=== PATIENT | female | born 1945 | race Asian ===

== ENCOUNTER 2021-04-22 07:37 | Outpatient (REF) | payer MEDICAID, SELFPAY ==
--- NOTE | ~2021-04-22 | CT_ITS ---
EXAMINATION: CT ABDOMEN AND PELVIS WITHOUT CONTRAST CLINICAL INFORMATION: Unintentional weight loss COMPARISON: None TECHNIQUE: Multidetector volumetric imaging was performed from the superior aspect of the liver through the pubic symphysis. Sagittal and coronal reformatted images were obtained on the technologist's workstation. This CT examination was performed using dose optimization techniques as appropriate, variously including the following: *Automated exposure control *Adjustment of mA and/or kV according to patient size (this includes techniques or standardized protocols for targeted exams where dose is matched to indication/reason for exam; i.e. extremities or head) *Use of iterative reconstruction technique DLP: 261 mGy-cm FINDINGS: LIVER, GALLBLADDER, AND BILIARY TREE: The liver is normal in size, shape, and attenuation. No focal hepatic lesion or biliary ductal dilatation is present. The gallbladder has been removed. PANCREAS: Unremarkable. SPLEEN: The spleen is lobulated in shape. The spleen is normal in size. ADRENAL GLANDS: Unremarkable. KIDNEYS AND URETERS: The kidneys are normal in size, shape, and attenuation. No hydronephrosis, hydroureter, or calculi seen. No perinephric stranding. BLADDER: There is mild diffuse bladder wall thickening, particularly the anterior bladder wall. GASTROINTESTINAL TRACT: The small and large bowel are unremarkable. The appendix is unremarkable. The stomach is not optimally distended. There is question of mild wall thickening of the stomach. ABDOMINAL WALL: There is a small umbilical hernia containing fat. LYMPH NODES: Normal. VASCULAR: There is evidence of atherosclerotic disease. No aneurysm is seen. PELVIC VISCERA: There is a 1 cm calcification in the left pelvis probably in the left ovary/adnexa.. The uterus and adnexa are otherwise unremarkable. There is a small amount of fluid in the pelvis. OSSEOUS STRUCTURES: There are degenerative changes of the spine and mild curvature to the left. There is a lipoma of the right iliopsoas muscle. CT/CT abdomen pelvis wo con IMPRESSION: Mild diffuse bladder wall thickening. Question mild gastric wall thickening. Small left pelvic calcification probably in the left ovary/adnexa and small amount of fluid in the pelvis.
--- NOTE | ~2021-04-22 | CT_ITS ---
EXAMINATION: CT CHEST WITHOUT CONTRAST CLINICAL INFORMATION: Bilateral pleural effusions and mediastinal lymphadenopathy COMPARISON: None TECHNIQUE: Multidetector volumetric CT imaging of the chest was done. Axial MIP volume rendering provided. Sagittal and coronal reformatted images were obtained. This CT examination was performed using dose optimization techniques as appropriate, variously including the following: *Automated exposure control *Adjustment of mA and/or kV according to patient size (this includes techniques or standardized protocols for targeted exams where dose is matched to indication/reason for exam; i.e. extremities or head) *Use of iterative reconstruction technique DLP: 58 mGy-cm FINDINGS: LUNGS: There is a 3 mm left upper lobe nodule axial image 219 series 5. There is a 3 mm left lower lobe nodule axial image 277 series 5. There is a 2 mm right lower lobe nodule axial image 307 series 5. There is a 3 mm right lower lobe nodule axial 5. There is a 4 mm left left lower lobe nodule axial image 336 series 5. There are clustered 4 mm peripheral right lower lobe nodule axial image 340 10/26/1948 series 5. There are slightly increased interstitial markings seen in the peripheral right lower lobe. No evidence of emphysema or bronchiectasis. No endobronchial or endotracheal lesion. MEDIASTINUM: The heart is enlarged. In particular, the left atrium is enlarged. There is mild coronary artery calcification. The thoracic aorta caliber. There is no pericardial effusion. There are small mediastinal lymph nodes. No enlarged lymph nodes are seen. PLEURA: There is no pleural effusion. No pleural mass or thickening. AXILLA: No lymphadenopathy. OSSEOUS STRUCTURES: There are degenerative changes of the spine. CT/CT chest wo con IMPRESSION: Small pulmonary nodules or micronodules. Small mediastinal lymph nodes. No enlarged lymph nodes seen. No pleural effusion. Enlarged heart, particularly the left atrium is enlarged.
--- NOTE | 2021-04-25 11:58 | MHC.HEMONCMA ---
Urgent referral to GI sent via message task to GI windows desktop engineer. Joann from GI states they will call the patient to get her in urgently.
== END 2021-04-22 07:38 | disposition home or self-care (01) ==
LOC: HO.CT 07:37
PROVIDERS: Visit Provider Internal Medicine Medical Oncology
DX: R63.4 Abnormal weight loss (principal); J90 Pleural effusion, not elsewhere classified
CPT/HCPCS: 71250; 74176

== ENCOUNTER → 2021-05-06 09:11 | Outpatient (BNVA) | payer MEDICAID, SELFPAY | PROVIDERS: PCP Physician Assistant Medical; Referring Provider Physician Assistant Medical; Visit Provider Nurse Practitioner Family | DX: Z01.818 Encounter for other preprocedural examination (principal); Z01.810 Encounter for preprocedural cardiovascular examination; K59.01 Slow transit constipation; R63.4 Abnormal weight loss; R14.0 Abdominal distension (gaseous); I05.0 Rheumatic mitral stenosis; I27.20 Pulmonary hypertension, unspecified; I48.20 Chronic atrial fibrillation, unspecified; I11.0 Hypertensive heart disease with heart failure; I50.9 Heart failure, unspecified; I25.10 Atherosclerotic heart disease of native coronary artery without angina pectoris | CPT/HCPCS: 93005; 99202 ==

== ENCOUNTER → 2021-05-08 10:27 | Outpatient (REF) | payer MEDICAID, SELFPAY ==
--- NOTE | 2021-05-08 10:30 | CA_ITS ---
Acquisition Time: 2021-05-08 11:02:48 Total Exercise Time: 00:02:00 Test Indications: Z01.810 - Encounter for preproc Medications: Protocol: LEXISCAN Max HR: 103 BPM 72% of Pred: 143 BPM Max BP: 124/064 mmHG Max Work Load: 1.0 METS Pharmacological stress test with Lexiscan injection, while sitting and kicking her legs, without anginal symptoms, with report of dizziness, with intermittent LBBB, with normotensive response to injection, with nondiagnostic EKG for ischemia. In recovery she was treated with Aminophylline 75mg IVP with improvement in symptom. Nuclear images pending. Test reviewed with Dr Varela. Referred By: Chely Patel Overread By: CHELY PATEL
== END ==
LOC: HO.CARD 10:27
PROVIDERS: Visit Provider Internal Medicine Cardiovascular Disease
DX: Z01.810 Encounter for preprocedural cardiovascular examination (principal); I50.9 Heart failure, unspecified; I48.20 Chronic atrial fibrillation, unspecified; I25.10 Atherosclerotic heart disease of native coronary artery without angina pectoris; I05.0 Rheumatic mitral stenosis
CPT/HCPCS: 78452; 93017; A9500; J0280; J2785

== ENCOUNTER → 2021-05-08 | Outpatient (REF) | payer MEDICAID, SELFPAY ==
--- NOTE | ~2021-05-08 | NM_ITS ---
Myocardial perfusion study Indication: Preoperative cardiovascular risk stratification Technique: The patient was brought in for a Lexiscan perfusion study on 05/08/2021. Patient performed low-level exercise and was injected 0.4 mg of Lexiscan intravenously. Within a minute of injection, 25 mCi of sestamibi was given intravenously. Images were obtained using the SPECT gamma camera interlaced with the gating device. Images were obtained in supine position. Resting perfusion study was performed on 05/09/2021. Patient was administered 25 mCi of sestamibi intravenously at rest. Images were then obtained in supine position. Images obtained with and without CT attenuation. Total DLP 77 mGy-cm. Images were processed with the software and compared side to side in short axis, horizontal long axis and vertical long axis views. Findings: The stress perfusion study showed nonattenuated images show very minimal thinning of the apical inferolateral wall of the LV myocardium. Remainder of the LV myocardium is normally perfused. Attenuation corrected images show thinning of the apical inferolateral wall of the LV myocardium with minimally reduced uptake as well as mildly reduced uptake in the distal anterior wall of the LV myocardium. The gated study shows normal LV systolic function with calculated LVEF of greater than 70 %. LV cavity is normal in size. The gated study shows normal systolic wall thickening and contraction of segments. Resting study shows nonattenuated images show normal uptake of radiotracer in all segments of LV myocardium. Impression corrected images show uptake in the inferolateral wall of the LV myocardium with uptake in the apical inferior wall of the LV myocardium. Gating at rest reveals normal systolic wall motion with ejection fraction at 70%. The findings are consistent with likely normal myocardial perfusion. NM/NM ya perf SPECT rest & str Impression: 1. Myocardial perfusion imaging study shows likely normal myocardial perfusion 2. Gated LVEF is 70% 3. Transient ischemic dilatation not present EKG is nondiagnostic for ischemia
== END ==
LOC: HO.CARD
PROVIDERS: Visit Provider Internal Medicine Cardiovascular Disease
DX: Z01.818 Encounter for other preprocedural examination (principal); I27.0 Primary pulmonary hypertension
CPT/HCPCS: 78452; A9500

== ENCOUNTER → 2021-05-09 07:20 | Outpatient (REF) | payer MEDICAID, SELFPAY ==
--- NOTE | 2021-05-09 07:23 | CA_ITS ---
Transthoracic Echocardiogram Patient (Last, First, Middle): Katlin Tracy, Gender: Female Date of : 1945 Age: 75 Procedure Date: 05/09/2021 Procedure Type: Transthoracic Echocardiogram Location: OP Height: 160. cm Weight: 50. kg BSA: 1.50 m2 Heart Rate: bpm BP: 126 / 74 mmHg Geology Scientist: SAMMI Referring MD: Chely Patel NP-[employer] Engine Operator: Michel Varela MD Symptoms: I05.0 - Rheumatic mitral stenosis Study Quality: Good ECG Rhythm: Atrial Fibrillation Conclusions: - 1. Normal LV systolic function with LVEF of 60 65% 2. Severe rheumatic mitral stenosis 3. At least moderately dilated left atrium 4. Normal RV systolic pressure 5. No pericardial effusion Findings Left Ventricle Normal left ventricular size, thickness, and systolic function. The visually estimated ejection fraction is between 60-65%. Diastolic function is indeterminate on the basis of available data. Right Ventricle Normal right ventricular cavity size and systolic function. Atria The left atrium is moderately dilated. There is no evidence of interatrial shunt. The right atrium is mildly dilated. Aortic Valve There is mild thickening of the aortic valve. There is no aortic valve stenosis. There is no aortic valve regurgitation. Mitral Valve The mitral valve appears rheumatic. There is severe anterior and posterior mitral leaflet thickening. There is trace mitral valve regurgitation. There is severe mitral valve stenosis. Due to atrial fibrillation a mean gradient of variable from 8 mm to 11 mm of mercury. Calculated valve area by planimetry 0.826 cm2 consistent with severe mitral stenosis. Strange score of 8. Pulmonic Valve The pulmonic valve is likely normal. There is trace to mild pulmonic valve regurgitation. Tricuspid Valve Normal tricuspid valve structure. There is mild tricuspid valve regurgitation. The right ventricular systolic pressure is normal. The right ventricular systolic pressure is 31 mmHg. Normal right atrial pressure. There is no evidence of pulmonary hypertension. Great Vessels All visible segments of the aorta are normal in size. The pulmonary artery was not well visualized. Venous The inferior vena cava is normal in size and collapses greater than 50% with inspiration. Pericardium/Pleural There is no evidence of pericardial effusion. Prior Study Comparison No prior study available for comparison. Measurements M-Mode Liner Measurements Normals - Women/Men IVSd: 1.38 0.6-0.9/0.6-1.0 cm LVIDd: 3.96 3.9-5.3/4.2-5.9 cm LVIDd Index: 2.64 1.9-3.2 cm/m2 LVIDs: 2.30 2.0-3.8 cm LVPWd: 0.85 0.6-0.9/0.6-1.0 cm LV Mass: 181.48 67-162/88-224g LV Mass Index: 120.99 43-95/49-115 g/m2 M-Mode Volumes LV EDV: 68.30 LV ESV: 18.10 2D Linear Measurements IVSd: 1.18 0.6-0.9/0.6-1.0 cm LVIDd: 3.98 3.9-5.3/4.2-5.9 cm LVIDd Index: 2.65 2.4-3.2/2.2-3.1 cm/m2 LVIDs: 3.18 2.0-3.6 cm LVPWd: 1.03 0.7-1.1 cm Ao Root: 2.30 2.1-3.5 cm LA Diam: 4.50 2.7-3.8/3.0-4.0 cm LAIDs Index: 3.00 1.5-2.3 cm/m2 LV Mass: 181.10 67-162/88-224 g LV Mass Index: 120.73 43-95/49-115 g/m2 LVOT Diam: 1.70 3.0+(-)1.3 cm 2D Systolic Function EF 4C: 65.30 >55% EF 2C: 36.40 >55% M-Mode Systolic Function FS: 41.90 27-47/25-43% Mitral Valve MV VTI: 0.52 MV Pk Andres: 1.82 MV Mn Andres: 1.29 MV Pk Grad: 13.00 MV Mn Grad: 7.00 MV Pk E: 1.78 MV Decel Time: 593.00 E'Lateral: 6.15 E'Medial: 4.84 E/E' Med: 36.80 E/E' Lat: 28.90 PHT: 174.00 MVA PHT: 1.26 MVA Continuity: 0.70 Decel Logan: 3.05 Aortic Valve AoV Pk Andres: 1.10 AoV Pk Grad: 5.00 LVOT LVOT Pk Andres: 0.79 LVOT Mn Andres: 0.51 LVOT VTI: 0.16 LVOT Pk Grad: 2.00 LVOT Mn Grad: 1.00 LVOT Diam: 1.70 LVOT Area: 2.27 Diastolic Function MV Pk E: 1.78 E'Medial: 4.84 E/E' Med: 36.80 E' Laterial: 6.15 E/E' Lat: 28.90 Tricuspid Valve TR Pk Andres: 2.64 TR Pk Grad: 28.00 RA Press: 3.00 RVSP: 31.00 Great Vessels Aorta Ao Root-2D: 2.30 2.0-3.7 cm Ao Asc: 3.00 2.1-3.4 cm Updated in Other Vendor System with Status of Final Michel Varela MD electronically signed on 05/10/2021 2:53:38 PM with status of Final
== END ==
LOC: HO.CARD 07:20
PROVIDERS: Visit Provider Internal Medicine Cardiovascular Disease
DX: Z01.810 Encounter for preprocedural cardiovascular examination (principal); I25.10 Atherosclerotic heart disease of native coronary artery without angina pectoris; I27.20 Pulmonary hypertension, unspecified; I05.0 Rheumatic mitral stenosis
CPT/HCPCS: 93306

== ENCOUNTER 2021-05-16 11:10 | Day surgery (SDC) | payer MEDICAID, SELFPAY ==
--- NOTE | 2021-05-15 13:32 | HO.ANESPROP2 ---
Documented by User: Lissette Nathan NP 05/15/21 13:54 HPI - Anesthesia Eval Consult details Narrative: 75yo F for Upper Endoscopy and Colonoscopy Cardiac cleared: Nuclear stress test completed 05/08/2021 shows likely normal myocardial perfusion imaging with EF greater than 70%.? Echocardiogram done 05/09/2021 shows EF 60-65%, severe rheumatic mitral stenosis, moderate left atrial dilatation, RVSP 31 mm of mercury, no pulmonary hypertension.? Discussed case with Dr. Varela.? Patient may proceed with upper and lower endoscopies, which are low risk procedures with intermediate cardiac risk.? Would avoid medications that cause vasodilation.? Can hold Eliquis 2 days prior to procedure and restart as soon as cleared by surgeon to do so.? Previously discussed stroke risk while off anticoagulation with her.? Will arrange for cardiology follow-up in the near future to discuss plan of care with mitral stenosis and anticoagulation use. [facility] Active Problems Active Problems: All Active Problems (Updated 05/12/21 @ 17:26 by Igor Rivera MD) CHF (congestive heart failure) (Acute) Coronary artery calcification seen on CAT scan (Acute) HTN (hypertension) (Acute) Pulmonary hypertension (Acute) Mitral stenosis (Acute) Chronic a-fib (Acute) Preop cardiovascular exam (Acute) Hypercalcemia (Acute) Weight loss (Acute) Past Medical History Medical History (Updated 05/12/21 @ 17:26 by Igor Rivera MD) CHF (congestive heart failure) Chronic a-fib COVID-19 vaccine series completed Dementia Edema History of cardioversion HTN (hypertension) Hypercalcemia Hypothyroid Rheumatic heart disease Unintentional weight loss Family History Family History Family/Other Ulcerative colitis Crohn disease Surgical History Surgical History History of cardioversion (~2017) No pertinent past surgical history Social History Social History Are you a primary healthcare translator to a significant other at home: No Do you presently have visiting nurse or other home services: No Alcohol intake: never Patient Tobacco Use Status: Never used Tobacco Advance Directives: No Advance Directives Information Provided: No Meds Allergies Allergy/AdvReac Type Severity Reaction Status Date / Time No Known Allergies Allergy Verified 05/06/21 15:44 Home Medications Medication Instructions Recorded Confirmed Last Taken Type alprazolam 0.25 mg tablet 0.5 mg PO BEDTIME 04/09/21 05/12/21 Unknown History apixaban 5 mg tablet (Eliquis) 5 mg PO BID 04/09/21 05/12/21 05/13/21 History aspirin 81 mg tablet,delayed 81 mg PO DAILY 04/09/21 05/12/21 05/13/21 History release donepezil 5 mg tablet 5 mg PO DAILY 04/09/21 05/12/21 Unknown History febuxostat 40 mg tablet 40 mg PO DAILY 04/09/21 05/12/21 Unknown History levothyroxine 75 mcg tablet 75 mcg PO DAILY 04/09/21 05/12/21 05/16/21 10:30 History memantine 10 mg tablet 10 mg PO BID 04/09/21 05/12/21 Unknown History cinacalcet 30 mg tablet 30 mg PO DAILY 05/06/21 05/12/21 Unknown History diltiazem HCl 90 mg tablet 90 mg PO BID tab 05/06/21 05/12/21 05/16/21 07:30 History torsemide 5 mg tablet 5 mg PO DAILY PRN 05/06/21 05/12/21 Unknown History Exam Exam Date and Time: May 15, 2021 1332 Pertinent Lab Results Pertinent Lab Results: Laboratory Tests 04/09/21 04/09/21 11:40 11:40 WBC 7.4 Hgb 14.0 Hct 41.8 Plt Count 154 L Sodium 128 L Potassium 4.5 Chloride 95 L Carbon Dioxide 25 BUN 49 H Creatinine 1.80 H Narrative Narrative: EKG 04/2021 Afib, q waves anterolateral leads, unchanged from prior, QTc 440ms, rate 56 Echo 04/2021 Conclusions: -? 1. Normal LV systolic function with LVEF of 60 65%? 2. Severe rheumatic mitral stenosis? 3. At least moderately dilated left atrium ? 4. Normal RV systolic pressure ? 5. No pericardial effusion ? NM ya perf SPECT rest & str 04/2021 Impression: ? 1.? Myocardial perfusion imaging study shows likely normal myocardial perfusion 2.? Gated LVEF is 70% 3. Transient ischemic dilatation not present ? EKG is nondiagnostic for ischemia Assessment and Plan Assessment Anesthesia Assessment: Chart Reviewed Documented by User: Debora Burrows MD 05/16/21 11:58 [facility] Past Medical History Medical History (Updated 05/12/21 @ 17:26 by Igor Rivera MD) CHF (congestive heart failure) Chronic a-fib COVID-19 vaccine series completed Dementia Edema History of cardioversion HTN (hypertension) Hypercalcemia Hypothyroid Rheumatic heart disease Unintentional weight loss Functional capacity: independent ambulation Patient : No Family History Family History Family/Other Ulcerative colitis Crohn disease Family history of problems with anesthesia: No Surgical History Surgical History History of cardioversion (~2017) No pertinent past surgical history History of Problems with Anesthesia: No Social History Social History Are you a primary healthcare translator to a significant other at home: No Do you presently have visiting nurse or other home services: No Alcohol intake: never Patient Tobacco Use Status: Never used Tobacco Advance Directives: No Advance Directives Information Provided: No Meds Allergies Allergy/AdvReac Type Severity Reaction Status Date / Time No Known Allergies Allergy Verified 05/06/21 15:44 Home Medications Medication Instructions Recorded Confirmed Last Taken Type alprazolam 0.25 mg tablet 0.5 mg PO BEDTIME 04/09/21 05/12/21 Unknown History apixaban 5 mg tablet (Eliquis) 5 mg PO BID 04/09/21 05/12/21 05/13/21 History aspirin 81 mg tablet,delayed 81 mg PO DAILY 04/09/21 05/12/21 05/13/21 History release donepezil 5 mg tablet 5 mg PO DAILY 04/09/21 05/12/21 Unknown History febuxostat 40 mg tablet 40 mg PO DAILY 04/09/21 05/12/21 Unknown History levothyroxine 75 mcg tablet 75 mcg PO DAILY 04/09/21 05/12/21 05/16/21 10:30 History memantine 10 mg tablet 10 mg PO BID 04/09/21 05/12/21 Unknown History cinacalcet 30 mg tablet 30 mg PO DAILY 05/06/21 05/12/21 Unknown History diltiazem HCl 90 mg tablet 90 mg PO BID tab 05/06/21 05/12/21 05/16/21 07:30 History torsemide 5 mg tablet 5 mg PO DAILY PRN 05/06/21 05/12/21 Unknown History Exam Airway Mallampati Class: II TM Dist: >3cm Neck ROM: Full Heart: irreg. Lungs: CTA Assessment and Plan Final Anesthetic Review Family History of Problems with Anesthesia: No History of Problems with Anesthesia: No ASA Class: II Final Preanesthetic Review: No Changes in Pt Med Stat Patient Risk: Intermediate Procedure Risk: Low Anesthetic Plan Anesthetic Plan: MAC: Disposition: Standard PACU
[2021-05-16 11:54] VITALS: BMI 19.5
[2021-05-16 12:00] VITALS: BP 153/78; PULSE 81; RESP 18; TEMP 36.6; O2SAT 99
[2021-05-16 12:07] LABS: Anion Gap 14 (12-20); Blood Urea Nitrogen 13 mg/dL (9-16); Calcium 9.4 mg/dL (8.4-10.2); Carbon Dioxide 24 mmol/L (22-29); Chloride 106 mmol/L (96-108); Creatinine Clr Calc Pharmacy 31.5; Estimated Glomerular Filt Rate 44; Glucose Fasting 86 mg/dL (60-99); Potassium 3.9 mmol/L (3.3-5.1); Sodium 140 mmol/L (135-145)
--- NOTE | 2021-05-16 12:42 | MHC.SHP ---
Pre-Procedural Eval Section A Date of Service: 05/16/21 The patient is an INPATIENT: No Changes since office visit: Yes Patient answered all questions; No Cold of Flu in the past 2 weeks, No New Medical Problems and No Changes in Medication The History & Physical has been completed within 30 days and I have reviewed it.: Yes Section B Chief Complaint: screening,wt loss Allergies: Allergies Allergy/AdvReac Type Severity Reaction Status Date / Time No Known Allergies Allergy Verified 05/06/21 15:44 Plan I have reviewed the history and physical and performed a pertinent physical examination on my patient. No changes have occurred unless specified.
--- NOTE | 2021-05-16 12:42 | PM.OP ---
Brief Operative Note Date of Service: 05/16/21 Pre-op diagnosis: Colon cancer screening, abnormal CT scan of the stomach, weight loss Post-op diagnosis: other (Gastritis, colon polyps, diverticulosis) Procedure: FLEXIBLE TRANSORAL UPPER GASTROINTESTINAL ENDOSCOPY WITH BIOPSIES COLONOSCOPY TILL CECUM WITH SNARE POLYPECTOMY UPPER ENDOSCOPY Consent: Indications for the procedure and potential complications of bleeding, perforation, reaction to medications and missed diagnosis were discussed with the patient and informed consent was obtained. Instrument: Olympus GIF H 190 mid size upper endoscope Monitoring: Vital signs and clinical assessment, continuous EKG monitoring, Pulse oximetry, Carbon Dioxide monitoring and blood pressure monitoring were done throughout the procedure. Procedure: The patient was placed in the left lateral decubitis position and pre-procedure medications were administered and a bite block was placed. The endoscope was inserted into the mouth and advanced under direct vision to the third part of duodenum. A careful inspection was made as the upper endoscope was withdrawn including a retroflexed examination of the proximal stomach; Findings and interventions are described below. Findings: Larynx: Normal Esophagus: GE junction at 36 cms. No esophagitis or Bowens's. Stomach: Mild gastric erythema. Biopsies were obtained. Grade 2 flap valve and decreased fundal folds on retroflexed examination of the cardia. Duodenum: Normal bulb and descending duodenum. Biopsies were obtained from 3rd part of the duodenum to check for celiac disease Intervention: Biopsies as noted above COLONOSCOPY PROCEDURE NOTE Consent: Indications for the procedure and potential complications of bleeding, perforation, reaction to medications and missed diagnosis were discussed with the patient and informed consent was obtained. Instrument: Olympus PCF H 190 L variable stiffness pediatric colonoscope Monitoring: Vital signs and clinical assessment, intermittent blood pressure monitoring, continuous EKG monitoring, Pulse oximetry and Carbon Dioxide monitoring were done throughout the procedure. Colon withdrawl time was 24 minutes. Procedure: The patient was placed in the left lateral decubitis position and pre-procedure medications were administered. After a digital rectal examination of the ano-rectum, the video colonoscope was inserted into the rectum and advanced through the colon to the cecum. The colonoscope was slowly withdrawn in a retrograde panoramic fashion and the colon mucosa was carefully examined including a retroflexed view of the rectum. Findings and interventions are described below. Procedure Difficulty: : Without difficulty Findings: Terminal Ileum: Distal 5 cms was examined and appeared normal Cecum: Normal Ascending Colon: Three 10 to 10 mm sessile polyps removed with a hot snare. Scattered diverticulosis throughout the colon Transverse Colon: Scattered diverticulosis throughout the colon Descending Colon: Scattered diverticulosis throughout the colon Sigmoid Colon: Moderate diverticulosis Rectum: Normal Ano-rectum: Perianal skin tags Colon preparation: Good after some irrigation. Impression and Post Procedure Diagnosis: Endoscopy Findings: STOMACH: Gastritis DUODENUM: Normal - biopsied to check for celiac sprue. Colonoscopy Findings: Three medium sized polyps removed Moderate diverticulosis seen in the entire colon Plan: Await pathology results Patient has an appointment on 05/27/21 in the [facility] with Hansa Miller FNP-BC . Repeat Colonoscopy interval based on path results - in 3 years if polyps are adenomatous and 10 years if polyps are hyperplastic. Above findings were reviewed with the patient and Gastritis, colon polyps and diverticulosis handouts were given in the discharge area Surgeon: Fercho Sutton MD Anesthesia: MAC (Natalie Montes CRNA) Was an Nanosystems Engineer used for this Procedure?: Yes Nanosystems Engineer: Vish Verdin Estimated blood loss (mL): 0 Pathology: other (A- SMALL BOWEL BXS R/O CELIAC B- GASTRIC ANTRUM BXS R/O H. PYLORI C- STOMACH BXS LESSER CURVATURE D- STOMACH BXS GREATER CURVATURE E- ASCENDING COLON POLYPS) Condition: stable Disposition: PACU
--- NOTE | 2021-05-16 12:43 | P.OP_ITS ---
Operative Note Operative Note Date of Service: 05/16/21 Narrative: Pre-op diagnosis:?Colon cancer screening, abnormal CT scan of the stomach, weight loss Post-op diagnosis:?other (Gastritis, colon polyps, diverticulosis) Procedure:? FLEXIBLE TRANSORAL UPPER GASTROINTESTINAL ENDOSCOPY WITH BIOPSIES COLONOSCOPY TILL CECUM WITH SNARE POLYPECTOMY UPPER ENDOSCOPY Consent:?Indications for the procedure and potential complications of bleeding, perforation, reaction to medications and missed diagnosis were discussed with the patient and informed consent was obtained. Instrument:?Olympus GIF H 190 mid size upper endoscope Monitoring: Vital signs and clinical assessment, continuous EKG monitoring, Pulse oximetry, Carbon Dioxide monitoring and blood pressure monitoring were done throughout the procedure. Procedure:?The patient was placed in the left lateral decubitis position and pre-procedure medications were administered and a bite block was placed. The endoscope was inserted into the mouth and advanced under direct vision to the third part of duodenum. A careful inspection was made as the upper endoscope was withdrawn including a retroflexed examination of the proximal stomach; Findings and interventions are described below. Findings: Larynx:? Normal Esophagus: GE junction at 36 cms.? No esophagitis or Bowens's. Stomach: Mild gastric erythema. Biopsies were obtained. Grade 2 flap valve and decreased fundal folds on retroflexed examination of the cardia. Duodenum:?Normal bulb and descending duodenum.? Biopsies were obtained from 3rd part of the duodenum to check for celiac disease Intervention: Biopsies as noted above COLONOSCOPY PROCEDURE NOTE Consent:?Indications for the procedure and potential complications of bleeding, perforation, reaction to medications and missed diagnosis were discussed with the patient and informed consent was obtained. Instrument:?Olympus PCF H 190 L variable stiffness pediatric colonoscope Monitoring:?Vital signs and clinical assessment, intermittent blood pressure monitoring, continuous EKG monitoring, Pulse oximetry and Carbon Dioxide monitoring were done throughout the procedure. Colon withdrawl time was 24 minutes. Procedure:?The patient was placed in the left lateral decubitis position and pre-procedure medications were administered. After a digital rectal examination of the ano-rectum, the video colonoscope was inserted into the rectum and advanced through the colon to the cecum. The colonoscope was slowly withdrawn in a retrograde panoramic fashion and the colon mucosa was carefully examined including a retroflexed view of the rectum. Findings and interventions are described below. Procedure Difficulty:?: Without difficulty Findings: Terminal Ileum:?Distal 5 cms was examined and appeared normal Cecum:? Normal Ascending Colon:? Three 10 to 10 mm sessile polyps removed with a hot snare. Scattered diverticulosis throughout the colon Transverse Colon: Scattered diverticulosis throughout the colon Descending Colon:? Scattered diverticulosis throughout the colon Sigmoid Colon:? Moderate diverticulosis Rectum:? Normal Ano-rectum:? Perianal skin tags Colon preparation:? Good after some irrigation. Impression and Post Procedure Diagnosis: Endoscopy Findings: STOMACH: Gastritis DUODENUM: Normal - biopsied to check for celiac sprue. Colonoscopy Findings: Three medium sized polyps removed Moderate diverticulosis seen in the entire colon Plan: Await pathology results Patient has an appointment on 05/27/21 in the [facility] with Hansa Miller FNP- BC . Repeat Colonoscopy interval based on path results - in 3 years if polyps are adenomatous and 10 years if polyps are hyperplastic. Above findings were reviewed with the patient and Gastritis, colon polyps and diverticulosis handouts were given in the discharge area Surgeon:?Fercho Sutton MD Anesthesia:?MAC (Natalie Montes CRNA) Was an Pmo Business Analyst used for this Procedure?:?Yes Pmo Business Analyst:?Vish Verdin Estimated blood loss (mL):?0 Pathology:?other (A- SMALL BOWEL BXS? R/O CELIAC? B- GASTRIC ANTRUM BXS? R/O H. PYLORI? C- STOMACH BXS? LESSER CURVATURE? D- STOMACH BXS? GREATER CURVATURE? E- ASCENDING COLON POLYPS) Condition:?stable Disposition:?PACU
[2021-05-16] MEDS: Lactated Ringers 1,000 ML 50 ML IVCONT (12:52)
[2021-05-16 13:58] VITALS: BP 104/53; PULSE 76; RESP 16; TEMP 36.1; O2SAT 100
[2021-05-16 14:13] VITALS: BP 134/76; PULSE 84; RESP 16; O2SAT 97
[2021-05-16 14:28] VITALS: BP 143/78; PULSE 76; RESP 16; TEMP 36.1; O2SAT 99
== END 2021-05-16 14:45 | disposition home or self-care (01) ==
PROVIDERS: Nurse Practitioner; Visit Provider Internal Medicine Gastroenterology
PROC: (CPT 45385; principal; 2021-05-16 12:20)
DX: Z12.11 Encounter for screening for malignant neoplasm of colon (principal); K57.30 Diverticulosis of large intestine without perforation or abscess without bleeding; K64.4 Residual hemorrhoidal skin tags; R63.4 Abnormal weight loss; K29.50 Unspecified chronic gastritis without bleeding; I27.20 Pulmonary hypertension, unspecified; I48.20 Chronic atrial fibrillation, unspecified; I11.0 Hypertensive heart disease with heart failure; I50.9 Heart failure, unspecified; I05.0 Rheumatic mitral stenosis; R82.994 Hypercalciuria; Z79.01 Long term (current) use of anticoagulants; Z79.899 Other long term (current) drug therapy
CPT/HCPCS: 45385; 45380; 36415; 80048; 88305; 88342; J3010

== ENCOUNTER 2021-05-16 11:36 | Outpatient (REF) | payer MEDICAID, SELFPAY | END 2021-05-16 11:37 | disposition home or self-care (01) | LOC: HO.LAB 11:36 | PROVIDERS: Visit Provider Internal Medicine Gastroenterology | DX: Z13.89 Encounter for screening for other disorder (principal) ==

== ENCOUNTER → 2021-05-21 10:42 | Outpatient (BNVA) | payer MEDICAID, SELFPAY | PROVIDERS: Visit Provider Internal Medicine Cardiovascular Disease | DX: I48.20 Chronic atrial fibrillation, unspecified (principal); I05.0 Rheumatic mitral stenosis | CPT/HCPCS: 99212 ==

== ENCOUNTER → 2021-05-27 09:46 | Outpatient (BNVA) | payer MEDICAID, SELFPAY | PROVIDERS: Visit Provider Nurse Practitioner Family | DX: D36.9 Benign neoplasm, unspecified site (principal); Z98.890 Other specified postprocedural states | CPT/HCPCS: 99212 ==

== ENCOUNTER 2021-05-28 13:06 | Day surgery (SDC) | payer MEDICAID, SELFPAY ==
--- NOTE | 2021-05-27 10:28 | P.CONAN_ITS ---
HPI - Anesthesia Eval Consult details Narrative: 75yo F for Transesophageal Echocardiogram Coumadin for afib (recently changed from eliquis) s/p EGD and [place] with MAC 05/16/21 [facility] Active Problems Active Problems: All Active Problems (Updated 05/16/21 @ 13:16 by Fercho Sutton MD) Weight loss (Acute) Elevated alkaline phosphatase level (Acute) Hypercalcemia (Acute) Weight loss (Acute) Preop cardiovascular exam (Acute) Mitral stenosis (Acute) Pulmonary hypertension (Acute) Coronary artery calcification seen on CAT scan (Acute) CHF (congestive heart failure) (Acute) HTN (hypertension) (Acute) Chronic a-fib (Acute) Past Medical History Medical History (Updated 06/02/21 @ 15:26 by Hansa Miller [facility]) CHF (congestive heart failure) Chronic a-fib COVID-19 vaccine series completed Dementia Edema History of cardioversion HTN (hypertension) Hypercalcemia Hypothyroid Rheumatic heart disease Tubular adenoma Unintentional weight loss Family History Family History Family/Other Ulcerative colitis Crohn disease Family history of problems with anesthesia: No Surgical History Surgical History (Updated 05/27/21 @ 10:12 by Toshia Marquez CMA) History of cardioversion (~2017) History of cholecystectomy Hx of cataract extraction Hx of colonoscopy Hx of endoscopy No pertinent past surgical history History of Problems with Anesthesia: No Social History Social History Are you a primary patient care specialist to a significant other at home: No Do you presently have visiting nurse or other home services: No Alcohol intake: never Patient Tobacco Use Status: Never used Tobacco Meds Allergies Allergy/AdvReac Type Severity Reaction Status Date / Time No Known Allergies Allergy Verified 05/27/21 09:51 Home Medications Medication Instructions Recorded Confirmed Last Taken Type alprazolam 0.25 mg tablet 0.5 mg PO BEDTIME 04/09/21 05/21/21 Unknown History aspirin 81 mg tablet,delayed 81 mg PO DAILY 04/09/21 05/21/21 05/13/21 History release donepezil 5 mg tablet 5 mg PO DAILY 04/09/21 05/21/21 Unknown History febuxostat 40 mg tablet 40 mg PO DAILY 04/09/21 05/21/21 Unknown History levothyroxine 75 mcg tablet 75 mcg PO DAILY 04/09/21 05/21/21 05/28/21 History memantine 10 mg tablet 10 mg PO BID 04/09/21 05/21/21 Unknown History cinacalcet 30 mg tablet 30 mg PO DAILY 05/06/21 05/21/21 Unknown History diltiazem HCl 90 mg tablet 90 mg PO BID tab 05/06/21 05/21/21 05/16/21 History torsemide 5 mg tablet 5 mg PO DAILY PRN 05/06/21 05/21/21 Unknown History Exam Exam Date and Time: May 27, 2021 1028 Pertinent Lab Results Pertinent Lab Results: Laboratory Tests 04/09/21 05/16/21 11:40 11:38 WBC 7.4 Hgb 14.0 Hct 41.8 Plt Count 154 L Sodium 140 Potassium 3.9 Chloride 106 Carbon Dioxide 24 BUN 13 D Creatinine 1.18 Narrative Narrative: EKG 04/2021 Afib, q waves anterolateral leads, unchanged from prior, QTc 440ms, rate 56 Echo 04/2021 Conclusions: -? 1. Normal LV systolic function with LVEF of 60 65%? 2. Severe rheumatic mitral stenosis? 3. At least moderately dilated left atrium ? 4. Normal RV systolic pressure ? 5. No pericardial effusion ? NM ya perf SPECT rest & str 04/2021 Impression: ? 1.? Myocardial perfusion imaging study shows likely normal myocardial perfusion 2.? Gated LVEF is 70% 3. Transient ischemic dilatation not present ? EKG is nondiagnostic for ischemia Assessment and Plan Assessment Anesthesia Assessment: Chart Reviewed Final Anesthetic Review Family History of Problems with Anesthesia: No History of Problems with Anesthesia: No
[2021-05-28 13:45] VITALS: BMI 19.5
--- NOTE | 2021-05-28 13:53 | CA_ITS ---
Transesophageal Echocardiogram Patient (Last, First, Middle): Katlin Tracy, Gender: Female Date of : 1945 Age: 75 Procedure Date: 05/28/2021 Procedure Type: Transesophageal Echocardiogram Location: OP Height: 165.1 cm Weight: kg Senior Director Of Strategy: UGO Referring MD: Michel Varela MD Deputy Fire Marshal: Michel Varela MD Symptoms: I05.0 - Rheumatic mitral stenosis Conclusion: ??? 1. Normal LV systolic function 2. Severe rheumatic mitral stenosis with Strange score of 6 with no significant mitral regurgitation 3. Severely dilated left atrium with no evidence of clots including in the left atrial appendage 4. No intracardiac shunting 5. Small loculated pericardial effusion around the left atrium 6. No significant atherosclerosis of the aorta Findings Procedure Information Consent was obtained prior to the procedure. Pre HARRIETT oral cavity was checked and revealed no overcrowding. The adult 3D probe was passed with no difficulty. Left Ventricle Normal left ventricular size, thickness, and systolic function. The visually estimated ejection fraction is between 55-60%. Diastolic function is indeterminate on the basis of available data. Right Ventricle Normal right ventricular cavity size and systolic function. Atria The left atrium is severely dilated. There is no evidence of interatrial shunt. There is no evidence of a patent foramen ovale. There is no evidence of thrombus or mass in the left atrium. There is dense smoke formation seen in the left atrium. The left atrial appendage was identified in multiple view. Then no thrombus or masses noted in the left atrial appendage. The left atrial appendage velocities reduces expected. All 4 pulmonary veins were identified draining normally into the left atrium. The right atrium is moderately dilated. There is no evidence of thrombus or mass in the right atrium. Aortic Valve Normal aortic valve structure and function. There is no aortic valve stenosis. There is no aortic valve regurgitation. Mitral Valve The mitral valve appears rheumatic. There is moderate anterior and posterior mitral leaflet thickening. The anterior mitral leaflet has restricted mobility and the posterior mitral leaflet has restricted mobility. There is no mitral valve regurgitation. There is severe mitral valve stenosis. Calculated mitral valve area by multiple modalities including mitral valve area by PISA is 0.85 centimeters sq. Visually the Strange score is 6. There is no significant calcification. There is no significant mitral regurgitation. Pulmonic Valve The pulmonic valve is normal. There is trace pulmonic valve regurgitation. Tricuspid Valve Normal tricuspid valve structure. There is moderate tricuspid valve regurgitation. There is no evidence of pulmonary hypertension. Great Vessels All visible segments of the aorta are normal in size. The visualized portions of the pulmonary artery and branches are normal. Venous The inferior vena cava is normal in size and collapses greater than 50% with inspiration. Pericardium/Pleural There is a small loculated pericardial effusion overlying the left atrium. Measurements Mitral Valve MV VTI: 0.55 MV Pk Andres: 1.54 MV Mn Andres: 1.00 MV Pk Grad: 9.00 MV Mn Grad: 5.00 MV Pk E: 1.46 PHT: 193.00 MVA PHT: 1.14 Decel Kings: 2.34 Diastolic Function MV Pk E: 1.46 Updated by Michel Varela on 05:17 PM with Status of Final Michel Varela MD electronically signed on 05/28/2021 5:17:32 PM with status of Final
[2021-05-28 14:19] LABS: INTERNATIONAL NORM RATIO 1.1 (0.9-1.1); Prothrombin Time 12.3 SEC (9.9-13.0)
[2021-05-28 14:23] VITALS: BP 185/93; PULSE 70; RESP 16; TEMP 37.2; O2SAT 98
[2021-05-28] MEDS: Lactated Ringers 1,000 ML 20 ML IVCONT (14:41)
--- NOTE | 2021-05-28 15:06 | MHC.SHP ---
Pre-Procedural Eval Section A Date of Service: 05/28/21 The patient is an INPATIENT: No Changes since office visit: Yes Patient answered all questions; No Cold of Flu in the past 2 weeks, No New Medical Problems and No Changes in Medication The History & Physical has been completed within 30 days and I have reviewed it.: Yes Section B Chief Complaint: rheumatic mitral stenosis Allergies: Allergies Allergy/AdvReac Type Severity Reaction Status Date / Time No Known Allergies Allergy Verified 05/27/21 09:51 Plan I have reviewed the history and physical and performed a pertinent physical examination on my patient. No changes have occurred unless specified.
[2021-05-28 15:49] VITALS: BP 137/76; PULSE 75; RESP 16; TEMP 36.4; O2SAT 96
[2021-05-28 16:04] VITALS: BP 169/80; PULSE 69; RESP 20; O2SAT 98
[2021-05-28 16:19] VITALS: BP 179/90; PULSE 69; RESP 20; O2SAT 98
[2021-05-28 16:34] VITALS: BP 170/84; PULSE 72; RESP 20; O2SAT 98
[2021-05-28 16:49] VITALS: BP 175/86; PULSE 70; RESP 20; TEMP 36.6; O2SAT 98
== END 2021-05-28 17:23 | disposition home or self-care (01) ==
PROVIDERS: Nurse Practitioner; Visit Provider Internal Medicine Cardiovascular Disease
PROC: (CPT 93312; principal; 2021-05-28 14:30)
DX: I05.0 Rheumatic mitral stenosis (principal); I48.20 Chronic atrial fibrillation, unspecified; I50.9 Heart failure, unspecified; I11.0 Hypertensive heart disease with heart failure; R60.9 Edema, unspecified; F03.90 Unspecified dementia, unspecified severity, without behavioral disturbance, psychotic disturbance, mood disturbance, and anxiety; Z79.01 Long term (current) use of anticoagulants; Z79.82 Long term (current) use of aspirin; Z79.899 Other long term (current) drug therapy; Z90.49 Acquired absence of other specified parts of digestive tract
CPT/HCPCS: 93312; 36415; 85610

== ENCOUNTER 2021-06-11 13:50 | Outpatient (REF) | payer MEDICAID, SELFPAY ==
[2021-06-11 14:26] LABS: Hematocrit 36.9 % (37.0-47.0); Hemoglobin 12.1 g/dl (12.0-16.0); Mean Corpuscular HGB Conc 32.8 g/dl (31.0-35.0); Mean Corpuscular Hemoglobin 28.7 pg (27.0-33.0); Mean Corpuscular Volume 87.6 fL (80.0-98.0); Mean Platelet Volume 11.3 fL (9.4-12.3); Platelet Count 214 X10*3/uL (160-400); Red Blood Count 4.21 X10*6/uL (4.20-5.50); Red Cell Distribution Width 14.9 % (11.0-16.0); White Blood Count 7.4 X10*3/uL (4.8-10.8)
[2021-06-11 14:33] LABS: INTERNATIONAL NORM RATIO 1.5 (0.9-1.1); Prothrombin Time 16.6 SEC (9.9-13.0)
[2021-06-11 14:49] LABS: Anion Gap 11 (12-20); Blood Urea Nitrogen 23 mg/dL (9-16); Calcium 9.4 mg/dL (8.4-10.2); Carbon Dioxide 31 mmol/L (22-29); Chloride 100 mmol/L (96-108); Estimated Glomerular Filt Rate 39; Glucose Random 102 mg/dL (60-115); Potassium 3.5 mmol/L (3.3-5.1); Sodium 138 mmol/L (135-145)
[2021-06-11 15:10] LABS: Vitamin D 25-OH Total 35.7 ng/mL (>30)
[2021-06-11 15:59] LABS: Folate 11.6 ng/mL (> or = 4.0); Vitamin B12 365 pg/mL (200-900)
[2021-06-16 22:27] LABS: Alk.Phos Iso. Macrohepatic 0 % (<=0); Alk.Phos Isoenzymes Bone 39 % (28-66); Alk.Phos Isoenzymes Intest 0 % (1-24); Alk.Phos Isoenzymes Liver 61 % (25-69); Alk.Phos Isoenzymes Placental 0 % (<=0); Alk.Phos Isoenzymes Total 112 U/L (37-153)
[2021-06-19 11:42] LABS: Mitochondrial Antibodies NEGATIVE (NEGATIVE)
== END 2021-06-11 13:51 | disposition home or self-care (01) ==
LOC: HO.LAB 13:50
PROVIDERS: Internal Medicine Gastroenterology; Visit Provider Internal Medicine Cardiovascular Disease
DX: R74.8 Abnormal levels of other serum enzymes (principal); R63.4 Abnormal weight loss; I05.0 Rheumatic mitral stenosis
CPT/HCPCS: 36415; 80048; 82306; 82607; 82746; 84080; 85027; 85610; 86255; 86256

== ENCOUNTER → 2021-07-09 12:52 | Outpatient (BNVA) | payer MEDICAID, SELFPAY | PROVIDERS: Visit Provider Nurse Practitioner Family | DX: I05.0 Rheumatic mitral stenosis (principal); I27.20 Pulmonary hypertension, unspecified; I25.10 Atherosclerotic heart disease of native coronary artery without angina pectoris; I48.20 Chronic atrial fibrillation, unspecified; I11.0 Hypertensive heart disease with heart failure; I50.9 Heart failure, unspecified; Z98.890 Other specified postprocedural states | CPT/HCPCS: 99212 ==